=== PATIENT | male | born 1950 | race Two or more races ===

== ENCOUNTER 2018-12-20 11:53 | Inpatient (IN) | payer OTHER ==
--- NOTE | 2018-12-20 12:14 | PDOC ---
Rapid Medical Evaluation Chief Complaint: Shortness of Breath Time Seen by Provider: 12/20/18 12:10 Medical Evaluation: Allergies Allergy/AdvReac Type Severity Reaction Status Date / Time No Known Allergies Allergy Verified 12/20/18 12:07 Vital Signs Temp Pulse Resp BP Pulse Ox 98.8 F 107 H 26 H 146/57 L 90 L 12/20/18 12:03 12/20/18 12:03 12/20/18 12:03 12/20/18 12:03 12/20/18 12:03 12/20/18 12:12 CC: SOB PE: HR-107, RR-26, Spo2-90% Scattered I&E wheezing. Trace pedal edema. 4 word dyspnea. Orders: Cardiac w/u with duonebs Patient will proceed to ED for continued evaluation.
[2018-12-20] MEDS: ALBUTEROL SO4 2.5/IPRATROPIUM 0.5 INH SOL 3 ML VIAL.NEB. NEB SCH ×4 (12:16→13:00)
[2018-12-20] MEDS ORDERED: ALBUTEROL SO4 2.5/IPRATROPIUM 0.5 INH SOL 3 ML VIAL.NEB. NEB ONE ×2 (12:21→13:12)
[2018-12-20 12:36] LABS: BASO % 2.1 % (0-2.0); EOS % 8.1 % (0-4.5); HEMATOCRIT 46.6 % (35.4-49); LYMPH % 20.9 % (8-40); MCH 32.3 pg (25.7-33.7); MCHC 34.2 g/dl (32.0-35.9); MEAN CELL VOLUME 94.4 fl (80-96); MEAN PLT VOLUME 9.8 fl (7.5-11.1); MONO % 7.3 % (3.8-10.2); NEUT % 61.6 % (42.8-82.8); PLATELET COUNT 169 K/MM3 (134-434); RBC 4.94 M/mm3 (4.00-5.60); RDW 13.4 % (11.9-15.9); WHITE BLOOD COUNT 9.9 K/mm3 (4.0-10.0)
--- NOTE | 2018-12-20 12:36 | PDOC ---
History of Present Illness - General Chief Complaint: Shortness of Breath Stated Complaint: SOB Time Seen by Provider: 12/20/18 12:10 - History of Present Illness Initial Comments: 12/20/18 13:31 68 y/o M with a hx of Asthma, COPD, presents to the ED with 3 days of worsening shortness of breath and wheezing. He has had these symptoms for a month and a half and they have been managed by albuterol inhalers. Symptoms worsened when he ran out 3 days ago. SOB occurs both at rest and with exertion.He has had mid- sternal chest pain radiating to his right side with coughing, but no pleuritic chest pain. His symptoms have been accompanied by cough productive of clear phlegm. He endorses PND and wheezing. He denies any recent travel, hx of blood clots, hemoptysis, myocardial infarction, fevers, chills, nausea or vomiting. His PCP referred him to [place] for pulmonary function testing where he was found to have continued wheezing and difficulty breathing. He presented from the Respiratory department. PCP: Dr. Ariel Carroll. 12/20/18 13:40 12/20/18 15:42 Past History - Past Medical History Allergies/Adverse Reactions: Allergies Allergy/AdvReac Type Severity Reaction Status Date / Time No Known Allergies Allergy Verified 12/20/18 12:07 Home Medications: Ambulatory Orders Albuterol 2.5/Ipratropium 0.5 [Duoneb -] 1 amp NEB RQID #60 amp 12/26/18 Albuterol Sulfate Inhaler - [Ventolin Hfa Inhaler -] 1 - 2 inh PO Q4H PRN #1 inhaler 12/26/18 Arformoterol Tartrate [Brovana -] 1 amp NEB RBID #60 amp 12/26/18 Montelukast Na [Singulair -] 10 mg PO HS #30 tablet 12/26/18 Nebulizer Accessories [A.i.r.s. Nebulizer] 1 each ASDIR #1 kit 12/26/18 Nebulizer [Aeroeclipse II] 1 each ASDIR #1 each 12/26/18 Pantoprazole Sodium [Protonix -] 40 mg PO DAILY #14 tablet.ec 12/26/18 Prednisone 10 mg PO DAILY #28 tablet 12/26/18 COPD: No - Psycho Social/Smoking Cessation Hx Smoking History: Never smoked Have you smoked in the past 12 months: No Information on smoking cessation initiated: No Hx Alcohol Use: No Drug/Substance Use Hx: No Review of Systems - Review of Systems Constitutional: No: Chills, Fever HEENTM: No: Eye Pain, Blurred Vision Respiratory: Yes: Symptoms reported Cardiac (ROS): Yes: Symptoms Reported ABD/GI: No: Constipated, Diarrhea, Nausea, Vomiting : No: Burning, Dysuria Musculoskeletal: Yes: Back Pain Integumentary: No: Bruising, Change in Color Neurological: Yes: Headache Endocrine: No: Excessive Sweating *Physical Exam - Vital Signs Last Vital Signs Temp Pulse Resp BP Pulse Ox 98.8 F 107 H 26 H 146/57 L 90 L 12/20/18 12:03 12/20/18 12:03 12/20/18 12:03 12/20/18 12:03 12/20/18 12:03 - Physical Exam Comments: 12/20/18 13:42 PE: GENERAL: Awake, alert, and fully oriented, in no acute distress HEAD: No signs of trauma, normocephalic, atraumatic EYES: PERRLA, EOMI, sclera anicteric, conjunctiva clear ENT: Auricles normal inspection, hearing grossly normal, nares patent, oropharynx clear without exudates. Moist mucosa NECK: Normal ROM, supple, no lymphadenopathy, JVD, or masses LUNGS: Pt on duonebs tx at time of evaluation. Inspiratory wheezing and rhonchi. HEART: Tachycardic, normal S1 and S2, no murmurs, rubs or gallops, peripheral pulses normal and equal bilaterally. ABDOMEN: Soft, nontender, normoactive bowel sounds. No guarding, no rebound. No masses EXTREMITIES : Normal inspection, Normal range of motion, trace edema. No clubbing or cyanosis NEUROLOGICAL: Cranial nerves II through XII grossly intact. Normal speech, normal gait, no focal sensorimotor deficits SKIN: Warm, Dry, normal turgor, no rashes or lesions noted ED Treatment Course - LABORATORY CBC & Chemistry Diagram: 12/25/18 06:40 12/25/18 06:40 Medical Decision Making - Medical Decision Making 12/20/18 13:47 68 y/o M with a hx of Asthma, COPD, presents to the ED with 3 days of worsening shortness of breath and wheezing. ekg, cmp,cbc, cardiac monitoring, bnp, cardiac profile, cxr Meds: duonebs x 4 IV solumedrol 125mg 12/20/18 13:47 Pt reports pain and breathing improved with duonebs treatment. Discharge - Discharge Information Problems reviewed: Yes Clinical Impression/Diagnosis: COPD exacerbation Condition: Improved Disposition: HOME - Follow up/Referral - Patient Discharge Instructions - Post Discharge Activity
[2018-12-20 12:49] LABS: INR 1.06 (0.83-1.09); PROTHROMBIN TIME (PATIENT) 12.5 SEC (9.7-13.0)
[2018-12-20 13:08] LABS: BILIRUBIN,TOTAL 1.2 mg/dL (0.2-1); BLOOD UREA NITROGEN 27.4 mg/dL (7-18); CALCIUM 9.2 mg/dL (8.5-10.1); CREATININE 0.8 mg/dL (0.55-1.3); TOT PROT 7.5 g/dl (6.4-8.2)
[2018-12-20 13:12] LABS: MAGNESIUM 2.1 mg/dL (1.8-2.4); N-TERMINAL BNP 25.2 pg/ml (5-125)
[2018-12-20] MEDS ORDERED: SODIUM CHLORIDE 1,000 ML IV STA (13:22)
[2018-12-20] MEDS ORDERED: methylPREDNISolone NA SUCC 125 MG/2 ML VIAL IVPUSH ONE (13:29)
[2018-12-20] MEDS ORDERED: methylPREDNISolone NA SUCC 125 MG/2 ML VIAL ONE (13:48)
--- NOTE | 2018-12-20 15:13 | PDOC ---
Documentation entered by Dahlia Buenrostro SCRIBE, acting as scribe for Say Hester MD. Say Hester MD: This documentation has been prepared by the [employer] small Adrianna, SCRIBE, under my direction and personally reviewed by me in its entirety. I confirm that the documentation accurately reflects all work, treatment, procedures, and medical decision making performed by me. Attending Attestation - Resident Resident Name: Liborio Garcia - ED Attending Attestation I have performed the following: I have examined & evaluated the patient, The case was reviewed & discussed with the resident, I agree w/resident's findings & plan, Exceptions are as noted - HPI HPI: The patient is a 68 year old male, with a significant PMH of asthma and chronic obstructive pulmonary disease, who presents to the ED for evaluation of shortness of breath for 1.5 month, worse over the past 3 days. Patient has been short of breath with wheezing and productive cough (clear sputum), for which has been treating with albuterol inhalers. Patient ran out of the inhalers 3 days ago, which is when his symptoms were exacerbated. SOB is constant both at rest and upon exertion. Patient endorses associated mid-sternal chest pain that radiates to the right when he coughs. PCP advised him to come to the ER for further evaluation. Denies fever, chills, nausea, vomit, diarrhea. Allergies: NKA, NKDA Surgical History: None reported Social History: Former smoker (quit 10 years ago, smoked ppd). Denies EtOH or illicit drug use PCP: Dr. Ariel Carroll - Physicial Exam PE: Vitals: Triage Vital signs reviewed General Appearance: no acute distress, well nourished well developed, Cardiac: Regular rate and rhythm, no murmurs, no rubs, no gallops, Lungs: +Coarse breath sounds bilaterally, +end expiratory wheezing, Abdomen: Soft, nondistended, normal bowel sounds, nontender to palpation Extremities: Full range of motion to all extremities, no cyanosis, clubbing, or edema Skin: Warm and dry, no rashes or lesions, no petechiae Neuro: AOX3; Cranial Nerves 2-12 grossly c intact, Strength intact to all extremities, Sensation intact to all extremities, Psych: normal mood, normal affect - Medical Decision Making 68 year old male, with history of asthma and chronic obstructive pulmonary disease, presents with shortness of breath and chest pain. Plan: cmp, cbc, bmp, cardiac profile, cardiac monitoring, EKG, CXR. Administer duonebs, IV solumedrol. Reassess. 12/20/18 16:42 Patient treated with DuoNeb Solu-Medrol still remains hypoxic requiring supplemental oxygen and additional breathing treatments to maintain oxygenation given no improvement in symptomatology despite aggressive management will admit to hospital for further management of COPD exacerbation Heart Score/ECG Review - ECG Impressions Comment:: EKG performed at 11:47:41 demonstrates rate of 101bpm, sinus tachycardia, possible left atrial enlargement.
[2018-12-20] MEDS ORDERED: ALBUTEROL SO4 0.083% IH SOL 2.5 MG/3 ML VIAL.NEB. NEB PRN (18:40)
--- NOTE | 2018-12-20 18:47 | PN ---
Teaching Attending Note Name of Resident: Chris Pierson ATTENDING PHYSICIAN STATEMENT I saw and evaluated the patient. I reviewed the resident's note and discussed the case with the resident. I agree with the resident's findings and plan as documented. SUBJECTIVE: Complains of SOB/productive cough. No fevers/chills. No CP/ palpitations OBJECTIVE: Afebrile, Hemodynamically Stable. Last Vital Signs Temp Pulse Resp BP Pulse Ox 98.9 F 97 H 22 H 108/70 94 L 12/20/18 14:47 12/20/18 14:39 12/20/18 14:39 12/20/18 14:39 12/20/18 14:39 HEENT - Atramatic, Normocephalic. HEART - S1, S2, RRR LUNGS - bilateral wheeze. ABDOMEN - Soft, non-tender. Bowel Sounds normal. EXTREMITIES - no edema, no calf tenderness. Laboratory Results - last 24 hr 12/20/18 12/20/18 12/20/18 11:23 11:23 11:23 WBC 9.9 RBC 4.94 Hgb 16.0 Hct 46.6 MCV 94.4 MCH 32.3 MCHC 34.2 RDW 13.4 Plt Count 169 MPV 9.8 Absolute Neuts (auto) 6.1 Neutrophils % 61.6 Lymphocytes % 20.9 Monocytes % 7.3 Eosinophils % 8.1 H Basophils % 2.1 H Nucleated RBC % 0 PT with INR INR Sodium 141 Potassium 4.0 Chloride 109 H Carbon Dioxide 27 Anion Gap 4 L BUN 27.4 H Creatinine 0.8 Est GFR (CKD-EPI)AfAm 106.38 Est GFR (CKD-EPI)NonAf 91.79 Random Glucose 103 Lactic Acid Calcium 9.2 Magnesium 2.1 Total Bilirubin 1.2 H AST 22 ALT 32 Alkaline Phosphatase 89 Creatine Kinase 126 Troponin I < 0.02 B-Natriuretic Peptide 25.2 Total Protein 7.5 Albumin 4.0 12/20/18 12/20/18 11:23 14:56 WBC RBC Hgb Hct MCV MCH MCHC RDW Plt Count MPV Absolute Neuts (auto) Neutrophils % Lymphocytes % Monocytes % Eosinophils % Basophils % Nucleated RBC % PT with INR 12.50 INR 1.06 Sodium Potassium Chloride Carbon Dioxide Anion Gap BUN Creatinine Est GFR (CKD-EPI)AfAm Est GFR (CKD-EPI)NonAf Random Glucose Lactic Acid 1.2 Calcium Magnesium Total Bilirubin AST ALT Alkaline Phosphatase Creatine Kinase Troponin I B-Natriuretic Peptide Total Protein Albumin Current Medications Generic Name Dose Route Start Last Admin Trade Name Freq PRN Reason Stop Dose Admin Albuterol Sulfate amp 12/20/18 18:40 Ventolin 0.083% Nebulizer Soln - NEB Q4H PRN SHORT OF BREATH/WHEEZING Enoxaparin Sodium 40 mg 12/21/18 10:00 Lovenox - SQ DAILY [facility] Home Medications Medication Instructions Recorded Albuterol 2.5/Ipratropium 0.5 1 amp NEB QID PRN #1 amp 12/20/18 [Duoneb -] Prednisone [Deltasone] 40 mg PO DAILY 3 Days #6 tablet 12/20/18 MDD 2 tab ASSESSMENT AND PLAN: 68 year old male ex-smoker with history of COPD sent to ED from [facility] for poor results and symptoms of SOB, chest tightness, cough w/ clear-white sputum, found to be hypoxic and was admitted for COPD exacerbation. 1. Acute Hypoxic Respiratory failure secondary to COPD Exacerbation Bronchodilator nebs, IV Solumedrol, Abx, supplemental O2. Monitor Respiratory status. DVT Px - Lovenox SQ
[2018-12-20] MEDS ORDERED: ALBUTEROL SO4 2.5/IPRATROPIUM 0.5 INH SOL 3 ML VIAL.NEB. NEB PRN (19:09)
--- NOTE | 2018-12-20 19:39 | HP ---
CHIEF COMPLAINT: SOB w/a chest tightness PCP: HISTORY OF PRESENT ILLNESS: 68M w/ pmh of asthma, COPD sent in from [facility] for "bad" PFT results. Has had chronic SOB for 6ys since he was diagnosed with asthma, COPD. Symptoms of SOB, cough w/ clear-white sputum, chest tightness worse at night, usually requiring asthma inhaler. No known specific asthma triggers. No sick contacts. Used up his inhaler 3d prior. Has been to [place] [id number] in the last year for asthma/COPD exacerbations. Had pneumonia last year that resulted in a 1mo admission. Never been intubated. Denies being prescribed steroids. Has dust allergy. Works small odd-jobs helping clean, move items. [facility] #[id number] ER course was notable for: (1) EKbpm, QTc 438 (2) duoneb x4 q15min (3) solumedrol 125mg IVP (4) NS 1L (5) O2 desat to high 80s on RA (6) 4L NC Recent Travel: PAST MEDICAL HISTORY: asthma, COPD PAST SURGICAL HISTORY: Right foot bunion surgery Social History: Smoking: stopped smoking 10ys prior, smoked 1 pack per 3d Alcohol: occasional Drugs: denies Allergies No Known Allergies Allergy (Verified 12/20/18 12:07) HOME MEDICATIONS: Home Medications Medication Instructions Recorded Albuterol 2.5/Ipratropium 0.5 1 amp NEB QID PRN #1 amp 12/20/18 [Duoneb -] Prednisone [Deltasone] 40 mg PO DAILY 3 Days #6 tablet 12/20/18 MDD 2 tab REVIEW OF SYSTEMS CONSTITUTIONAL: Absent: fever, chills, diaphoresis, generalized weakness HEENT: Absent: rhinorrhea, nasal congestion, throat pain, throat swelling, difficulty swallowing CARDIOVASCULAR: Absent: chest pain, palpitations, irregular heart rate, lightheadedness, peripheral edema RESPIRATORY: cough w/ clear-white sputum, shortness of breath, wheezing Absent: dyspnea with exertion, orthopnea, stridor, hemoptysis GASTROINTESTINAL: Absent: abdominal pain, abdominal distension, nausea, vomiting, diarrhea, constipation, melena, hematochezia GENITOURINARY: Absent: dysuria, frequency, urgency, hematuria, MUSCULOSKELETAL: Absent: myalgia, arthralgia, joint swelling, back pain, neck pain SKIN: Absent: rash, itching, pallor NEUROLOGIC: Absent: headache, focal weakness or paresthesias, dizziness, unsteady gait, seizure, PHYSICAL EXAMINATION Vital Signs - 24 hr 12/20/18 12/20/18 12/20/18 12:03 13:40 14:00 Temperature 98.8 F Pulse Rate 107 H Pulse Rate [ 102 H Apical] Respiratory 26 H 22 H Rate Blood Pressure 146/57 L Blood Pressure [Left Arm] O2 Sat by Pulse 90 L 92 L 93 L Oximetry (%) 12/20/18 12/20/18 12/20/18 14:35 14:39 14:47 Temperature 98.9 F Pulse Rate Pulse Rate [ 97 H Apical] Respiratory 22 H Rate Blood Pressure Blood Pressure 108/70 [Left Arm] O2 Sat by Pulse 94 L 94 L Oximetry (%) GENERAL: Awake, alert, and fully oriented, in no acute distress. HEAD: NC/AT EYES: sclera anicteric, conjunctiva clear. EARS, NOSE, THROAT: Ears normal, nares patent, oropharynx w/o erythema. Moist mucous membranes. NECK: Normal range of motion, supple without lymphadenopathy. LUNGS: diffuse expiratory wheezes throughout b/l lungs, no crackles. No accessory muscle use. Breathing 4L NC. Speaking full sentences HEART: tachy, reg rhythm, normal S1 and S2 without murmur, rub or gallop. ABDOMEN: Soft, nontender, not distended, no guarding, no rebound, no masses. MUSCULOSKELETAL: Normal range of motion at all joints. No bony deformities or tenderness. UPPER EXTREMITIES: 2+ pulses, warm, well-perfused. No cyanosis. No clubbing. No peripheral edema. LOWER EXTREMITIES: warm, well-perfused. No calf tenderness. No peripheral edema. NEUROLOGICAL: Normal speech. PSYCHIATRIC: Cooperative. Good eye contact. Appropriate mood and affect. SKIN: Warm, dry, normal turgor, no rashes or lesions noted, normal capillary refill. Laboratory Results - last 24 hr 12/20/18 12/20/18 12/20/18 11:23 11:23 11:23 WBC 9.9 RBC 4.94 Hgb 16.0 Hct 46.6 MCV 94.4 MCH 32.3 MCHC 34.2 RDW 13.4 Plt Count 169 MPV 9.8 Absolute Neuts (auto) 6.1 Neutrophils % 61.6 Lymphocytes % 20.9 Monocytes % 7.3 Eosinophils % 8.1 H Basophils % 2.1 H Nucleated RBC % 0 PT with INR INR Sodium 141 Potassium 4.0 Chloride 109 H Carbon Dioxide 27 Anion Gap 4 L BUN 27.4 H Creatinine 0.8 Est GFR (CKD-EPI)AfAm 106.38 Est GFR (CKD-EPI)NonAf 91.79 Random Glucose 103 Lactic Acid Calcium 9.2 Magnesium 2.1 Total Bilirubin 1.2 H AST 22 ALT 32 Alkaline Phosphatase 89 Creatine Kinase 126 Troponin I < 0.02 B-Natriuretic Peptide 25.2 Total Protein 7.5 Albumin 4.0 12/20/18 12/20/18 11:23 14:56 WBC RBC Hgb Hct MCV MCH MCHC RDW Plt Count MPV Absolute Neuts (auto) Neutrophils % Lymphocytes % Monocytes % Eosinophils % Basophils % Nucleated RBC % PT with INR 12.50 INR 1.06 Sodium Potassium Chloride Carbon Dioxide Anion Gap BUN Creatinine Est GFR (CKD-EPI)AfAm Est GFR (CKD-EPI)NonAf Random Glucose Lactic Acid 1.2 Calcium Magnesium Total Bilirubin AST ALT Alkaline Phosphatase Creatine Kinase Troponin I B-Natriuretic Peptide Total Protein Albumin ASSESSMENT/PLAN: 68M w/ pmh of asthma, COPD sent to ED from [facility] for poor results and symptoms of SOB, chest tightness, cough w/ clear-white sputum. Admitted for asthma exacerbation after the patient demonstrated O2 requirement, desaturating to mid-high 80s on RA #asthma excerbation --symptomatically improved > EKG(12/20/18): 101 bpm, QTc 438 > CXR(12/20/18): no major abn, pending read - ED: s/p duonebx x4, solumedrol 124mg IVP - duonebs q6h, scheduled - duonebs q4h, PRN - solumedrol 40mg IVP, q4h - levofloxacin 750mg daily - supplemental O2, titrate >92% #bilirubinemia --asymptomatic > Tbil 1.2 - trend FEN - NS @100ml/h - reg diet DVT - lovenox Family Medical History Family History: Denies Visit type - Emergency Visit Emergency Visit: Yes ED Registration Date: 12/20/18 Care time: The patient presented to the Emergency Department on the above date and was hospitalized for further evaluation of their emergent condition. - New Patient This patient is new to me today: Yes Date on this admission: 12/20/18 - Critical Care Critical Care patient: No ATTENDING PHYSICIAN STATEMENT I saw and evaluated the patient. I reviewed the resident's note and discussed the case with the resident. I agree with the resident's findings and plan as documented. SUBJECTIVE: OBJECTIVE: ASSESSMENT AND PLAN:
[2018-12-20] MEDS ORDERED: SODIUM CHLORIDE 1,000 ML IV SCH (19:45)
[2018-12-20] MEDS: methylPREDNISolone NA SUCC 40 MG/1 ML VIAL IVPUSH SCH (22:24)
[2018-12-21 01:10] VITALS: BMI 27.6
[2018-12-21] MEDS: methylPREDNISolone NA SUCC 40 MG/1 ML VIAL IVPUSH SCH ×4 (02:36→23:21)
[2018-12-21 05:55] LABS: PH,URINE 5.5 (5.0-8.0); URINE APPEARANCE CLEAR; URINE BILIRUBIN NEGATIVE (NEGATIVE); URINE COLOR YELLOW; URINE GLUCOSE (UA) TRACE (NEGATIVE); URINE KETONE NEGATIVE (NEGATIVE); URINE LEUK ESTERASE NEGATIVE (NEGATIVE); URINE NITRITE NEGATIVE (NEGATIVE); URINE PROTEIN NEGATIVE (NEGATIVE); URINE UROBILINOGEN 0.2 mg/dL (0.2-1.0)
[2018-12-21 08:02] LABS: HEMATOCRIT 43.4 % (35.4-49); MCH 32.3 pg (25.7-33.7); MCHC 34.7 g/dl (32.0-35.9); MEAN CELL VOLUME 93.2 fl (80-96); MEAN PLT VOLUME 10.5 fl (7.5-11.1); PLATELET COUNT 146 K/MM3 (134-434); RBC 4.65 M/mm3 (4.00-5.60); RDW 13.2 % (11.9-15.9); WHITE BLOOD COUNT 9.6 K/mm3 (4.0-10.0)
[2018-12-21 08:27] LABS: ALBUMIN 3.5 g/dl (3.4-5.0); BILIRUBIN,TOTAL 0.7 mg/dL (0.2-1); BLOOD UREA NITROGEN 19.7 mg/dL (7-18); CALCIUM 8.9 mg/dL (8.5-10.1); CREATININE 0.6 mg/dL (0.55-1.3); MAGNESIUM 2.1 mg/dL (1.8-2.4); PHOSPHOROUS 3.2 mg/dL (2.5-4.9); TOT PROT 6.7 g/dl (6.4-8.2)
[2018-12-21] MEDS: ALBUTEROL SO4 2.5/IPRATROPIUM 0.5 INH SOL 3 ML VIAL.NEB. NEB SCH ×4 (08:33→20:44)
--- NOTE | 2018-12-21 09:54 | EKG ---
Test Reason : Blood Pressure : / mmHG Vent. Rate : 101 BPM Atrial Rate : 101 BPM P-R Int : 142 ms QRS Dur : 092 ms QT Int : 338 ms P-R-T Axes : 072 025 061 degrees QTc Int : 438 ms POOR DATA QUALITY, INTERPRETATION MAY BE ADVERSELY AFFECTED SINUS TACHYCARDIA POSSIBLE LEFT ATRIAL ENLARGEMENT BORDERLINE ECG NO PREVIOUS ECGS AVAILABLE Confirmed by BHUPINDER MOSQUEDA, NICHELLE ([id number]) on 12/21/2018 9:54:12 AM Referred By: Confirmed By:NICHELLE ROE MD
[2018-12-21] MEDS: ENOXAPARIN NA (PORCINE) 40 MG/0.4 ML DISP.SYRIN SQ SCH (09:55)
[2018-12-21] MEDS ORDERED: IBUPROFEN 600 MG TABLET (FP) PO PRN (13:00)
[2018-12-21] MEDS ORDERED: AZITHROMYCIN IVPB 500 MG/250 ML BAG IVPB SCH (13:15)
--- NOTE | 2018-12-21 16:20 | PN ---
Teaching Attending Note Name of Resident: Chris Pierson ATTENDING PHYSICIAN STATEMENT I saw and evaluated the patient. I reviewed the resident's note and discussed the case with the resident. I agree with the resident's findings and plan as documented. SUBJECTIVE: Complains of ongoing SOB/productive cough. Developed myalgia overnight. No fevers/chills. No CP/palpitations OBJECTIVE: Afebrile, Hemodynamically Stable. SpO2 94% on 2L via NC Last Vital Signs Temp Pulse Resp BP Pulse Ox 98.5 F 109 H 18 130/60 94 L 12/21/18 15:24 12/21/18 15:24 12/21/18 15:24 12/21/18 15:24 12/21/18 08:45 HEENT - Atraumatic, Normocephalic. HEART - S1, S2, RRR LUNGS - bilateral polyphonic wheeze. ABDOMEN - Soft, non-tender. Bowel Sounds normal. EXTREMITIES - no edema, no calf tenderness. Laboratory Results - last 24 hr 12/21/18 12/21/18 12/21/18 04:15 07:15 07:15 WBC 9.6 RBC 4.65 Hgb 15.0 Hct 43.4 MCV 93.2 MCH 32.3 MCHC 34.7 RDW 13.2 Plt Count 146 MPV 10.5 Sodium 143 Potassium 4.0 Chloride 111 H Carbon Dioxide 23 Anion Gap 8 BUN 19.7 H Creatinine 0.6 Est GFR (CKD-EPI)AfAm 119.74 Est GFR (CKD-EPI)NonAf 103.31 Random Glucose 137 H Calcium 8.9 Phosphorus 3.2 Magnesium 2.1 Total Bilirubin 0.7 AST 13 L ALT 26 Alkaline Phosphatase 72 Total Protein 6.7 Albumin 3.5 Urine Color Yellow Urine Appearance Clear Urine pH 5.5 Ur Specific [place] 1.023 Urine Protein Negative Urine Glucose (UA) Trace Urine Ketones Negative Urine Blood Negative Urine Nitrite Negative Urine Bilirubin Negative Urine Urobilinogen 0.2 Ur Leukocyte Esterase Negative Current Medications Generic Name Dose Route Start Last Admin Trade Name Freq PRN Reason Stop Dose Admin Albuterol Sulfate 1 amp 12/20/18 18:40 Ventolin 0.083% Nebulizer Soln - NEB Q4H PRN SHORT OF BREATH/WHEEZING Albuterol/Ipratropium 1 amp 12/21/18 08:00 12/21/18 14:46 Duoneb - NEB 1 amp RQID BJORN Administration Enoxaparin Sodium 40 mg 12/21/18 10:00 12/21/18 09:55 Lovenox - SQ 40 mg DAILY BJORN Administration Sodium Chloride 1,000 mls @ 100 mls/hr 12/20/18 19:45 12/20/18 19:55 Normal Saline - IV 100 mls/hr ASDIR BJORN Administration Azithromycin 500 mg in 250 mls @ 250 mls/hr 12/21/18 15:15 Zithromax 500mg Ivpb (Pre-Docked) IVPB 12/26/18 09:59 DAILY BJORN Ibuprofen 600 mg 12/21/18 13:00 Motrin - PO Q6H PRN PAIN LEVEL 6-10 Methylprednisolone Sodium Succinate 40 mg 12/20/18 21:00 12/21/18 09:55 Solu-Medrol - IVPUSH 40 mg Q6H-IV BJORN Administration Home Medications Medication Instructions Recorded Albuterol 2.5/Ipratropium 0.5 1 amp NEB QID PRN #1 amp 12/20/18 [Duoneb -] predniSONE [Deltasone -] 40 mg PO BID 12/21/18 ASSESSMENT AND PLAN: 68 year old male ex-smoker with history of COPD sent to ED from [facility] for poor results and symptoms of SOB, chest tightness, cough w/ clear-white sputum, found to be hypoxic and was admitted for COPD exacerbation. 1. Acute Hypoxic Respiratory failure secondary to COPD Exacerbation, improving Continue Bronchodilator Nebs, IV Solumedrol, Azithromycin, Supplemental O2. CXR - Evidence of hyperinflation, no acute cardiopulmonary disease Monitor Respiratory status. DVT Px - Lovenox SQ
[2018-12-21] MEDS ORDERED: PT OWN MED DRAWER 7, Y5N ONE (16:25)
[2018-12-21] MEDS: AZITHROMYCIN IVPB 500 MG/250 ML BAG IVPB SCH (17:04)
--- NOTE | 2018-12-21 17:11 | PN ---
Physical Exam: SUBJECTIVE: Patient seen and examined THEO Endorses SOB w/ chest tightness OBJECTIVE: Vital Signs Period Temp Pulse Resp BP Sys/Ochoa Pulse Ox Last 24 Hr 97.5 F-99.7 F 67-109 18-20 113-149/60-81 94-96 GENERAL: Awake, alert, and fully oriented, in no acute distress. HEAD: NC/AT EYES: sclera anicteric, conjunctiva clear. EARS, NOSE, THROAT: Ears normal, nares patent, oropharynx w/o erythema. Moist mucous membranes. NECK: Normal range of motion, supple without lymphadenopathy. LUNGS: some expiratory wheezes throughout b/l lungs, no crackles. No accessory muscle use. Receiving breathing tx. Speaking full sentences HEART: tachy, reg rhythm, normal S1 and S2 without murmur, rub or gallop. ABDOMEN: Soft, nontender, not distended, no guarding, no rebound, no masses. MUSCULOSKELETAL: Normal range of motion at all joints. No bony deformities or tenderness. UPPER EXTREMITIES: 2+ pulses, warm, well-perfused. No cyanosis. No clubbing. No peripheral edema. LOWER EXTREMITIES: warm, well-perfused. No calf tenderness. No peripheral edema. NEUROLOGICAL: Normal speech. PSYCHIATRIC: Cooperative. Good eye contact. Appropriate mood and affect. SKIN: Warm, dry, normal turgor, no rashes or lesions noted, normal capillary refill. Laboratory Results - last 24 hr 12/21/18 12/21/18 12/21/18 04:15 07:15 07:15 WBC 9.6 RBC 4.65 Hgb 15.0 Hct 43.4 MCV 93.2 MCH 32.3 MCHC 34.7 RDW 13.2 Plt Count 146 MPV 10.5 Sodium 143 Potassium 4.0 Chloride 111 H Carbon Dioxide 23 Anion Gap 8 BUN 19.7 H Creatinine 0.6 Est GFR (CKD-EPI)AfAm 119.74 Est GFR (CKD-EPI)NonAf 103.31 Random Glucose 137 H Calcium 8.9 Phosphorus 3.2 Magnesium 2.1 Total Bilirubin 0.7 AST 13 L ALT 26 Alkaline Phosphatase 72 Total Protein 6.7 Albumin 3.5 Urine Color Yellow Urine Appearance Clear Urine pH 5.5 Ur Specific [place] 1.023 Urine Protein Negative Urine Glucose (UA) Trace Urine Ketones Negative Urine Blood Negative Urine Nitrite Negative Urine Bilirubin Negative Urine Urobilinogen 0.2 Ur Leukocyte Esterase Negative Active Medications Generic Name Dose Route Start Last Admin Trade Name Freq PRN Reason Stop Dose Admin Albuterol Sulfate 1 amp 12/20/18 18:40 Ventolin 0.083% Nebulizer Soln - NEB Q4H PRN SHORT OF BREATH/WHEEZING Albuterol/Ipratropium 1 amp 12/21/18 08:00 12/21/18 16:27 Duoneb - NEB 1 amp RQID BJORN Administration Enoxaparin Sodium 40 mg 12/21/18 10:00 12/21/18 09:55 Lovenox - SQ 40 mg DAILY BJORN Administration Azithromycin 500 mg in 250 mls @ 250 mls/hr 12/21/18 15:15 Zithromax 500mg Ivpb (Pre-Docked) IVPB 12/26/18 09:59 DAILY BJORN Ibuprofen 600 mg 12/21/18 13:00 Motrin - PO Q6H PRN PAIN LEVEL 6-10 Methylprednisolone Sodium Succinate 40 mg 12/20/18 21:00 12/21/18 15:31 Solu-Medrol - IVPUSH 40 mg Q6H-IV BJORN Administration ASSESSMENT/PLAN: 68M w/ pmh of asthma, COPD sent to ED from [facility] for poor results and symptoms of SOB, chest tightness, cough w/ clear-white sputum. Admitted for asthma exacerbation after the patient demonstrated O2 requirement, desaturating to mid-high 80s on RA #asthma excerbation --symptomatically improved > EKG(12/20/18): 101 bpm, QTc 438 > CXR(12/20/18): no major abn, pending read - ED: s/p duonebx x4, solumedrol 124mg IVP - duonebs q6h, scheduled - duonebs q4h, PRN - solumedrol 40mg IVP, q4h - levofloxacin 750mg daily -- dc'd - azithromycin -- day 2, continue for 5d abx - supplemental O2, titrate >92% #bilirubinemia --resolved > Tbil 1.2 -> 0.7 FEN - NS @100ml/h - reg diet DVT - lovenox Visit type - Emergency Visit Emergency Visit: No - New Patient This patient is new to me today: No - Critical Care Critical Care patient: No ATTENDING PHYSICIAN STATEMENT I saw and evaluated the patient. I reviewed the resident's note and discussed the case with the resident. I agree with the resident's findings and plan as documented. SUBJECTIVE: OBJECTIVE: ASSESSMENT AND PLAN:
[2018-12-22] MEDS: methylPREDNISolone NA SUCC 40 MG/1 ML VIAL IVPUSH SCH ×4 (04:00→22:03)
[2018-12-22] MEDS: ALBUTEROL SO4 2.5/IPRATROPIUM 0.5 INH SOL 3 ML VIAL.NEB. NEB SCH ×4 (08:00→20:41)
[2018-12-22] MEDS ORDERED: AZITHROMYCIN IVPB 500 MG/250 ML BAG IVPB SCH (10:00)
[2018-12-22] MEDS ORDERED: PT OWN MED DRAWER 7, Y5N ONE (10:33)
[2018-12-22] MEDS: ENOXAPARIN NA (PORCINE) 40 MG/0.4 ML DISP.SYRIN SQ SCH (10:35)
[2018-12-22] MEDS: AZITHROMYCIN IVPB 500 MG/250 ML BAG IVPB SCH (10:35)
--- NOTE | 2018-12-22 11:16 | CON.PULM ---
Consult Consult Specialty:: PULMONARY Referred by:: Dr Neri Reason for Consultation:: shortness of breath - History of Present Illness Chief Complaint: shortness of breath History of Present Illness: 68yo male with h/o COPD/asthma who was admitted with worsening shortness of breath. Was noted to be hypoxic and spirometry was performed showing severely reduced FEV1. Started on IV medrol and inhaled bronchodilators without significant improvement. States he still feels chest tightness with a cough productive of white sputum and wheezing. Reports chest discomfort especially with coughing. No fevers, chills or sweats. He is a former smoker, smoked about 1 PPD x 20 years. - History Source History Provided By: Patient, Medical Record Limitations to Obtaining History: Language Barrier - Past Medical History Pulmonary: Yes: COPD - Alcohol/Substance Use Hx Alcohol Use: No - Smoking History Smoking history: Never smoked Have you smoked in the past 12 months: No Home Medications - Allergies Allergies/Adverse Reactions: Allergies Allergy/AdvReac Type Severity Reaction Status Date / Time No Known Allergies Allergy Verified 12/20/18 12:07 - Home Medications Home Medications: Ambulatory Orders Albuterol 2.5/Ipratropium 0.5 [Duoneb -] 1 amp NEB QID PRN #1 amp 12/20/18 predniSONE [Deltasone -] 40 mg PO BID 12/21/18 Review of Systems - Review of Systems Constitutional: reports: Weakness. denies: Chills, Fever Eyes: denies: Recent Change in Vision HENT: denies: Nasal Congestion, Throat Pain Neck: denies: Decreased ROM, Stiffness Cardiovascular: reports: Chest Pain, Shortness of Breath. denies: Edema, Palpitations Respiratory: reports: Cough, Exercise Intolerance, SOB, SOB on Exertion, Wheezing. denies: Hemoptysis Gastrointestinal: denies: Abdominal Pain, Nausea, Vomiting Genitourinary: denies: Dysuria, Hematuria Neurological: denies: Dizziness, Headache Endocrine: denies: Unexplained Weight Loss Physical Exam Vital Sings: Vital Signs Temperature 98.6 F 12/22/18 09:00 Pulse Rate 108 H 12/22/18 09:00 Respiratory Rate 18 12/22/18 09:00 Blood Pressure 126/67 12/22/18 09:00 O2 Sat by Pulse Oximetry (%) 94 L 12/22/18 08:56 Constitutional: Yes: Calm Eyes: Yes: Conjunctiva Clear, EOM Intact HENT: Yes: Atraumatic, Normocephalic Neck: Yes: Supple, Trachea Midline Cardiovascular: Yes: Regular Rate and Rhythm Respiratory: Yes: Rhonchi, Wheezes ...Clubbing: No Gastrointestinal: Yes: Normal Bowel Sounds, Soft. No: Tenderness Edema: No Neurological: Yes: Alert, Oriented Labs: CBC, BMP 12/21/18 07:15 12/21/18 07:15 Imaging - Results Chest X-ray: Report Reviewed, Image Reviewed (no infiltrates) Problem List - Problems (1) COPD with acute exacerbation Code(s): J44.1 - CHRONIC OBSTRUCTIVE PULMONARY DISEASE W (ACUTE) EXACERBATION Assessment/Plan Acute COPD Exacerbation Hypoxia from above - will increase medrol to 60mg q6h - start LABA i.e. Brovana - inhaled bronchodilators standing and PRN - singulair - agree with azithromycin - O2 to keep SpO2 >90% - given severe reduction in FEV1, pt may be slow to improve - DVT prophylaxis Thank you for this consult Jae Ramirez MD
[2018-12-22] MEDS: ARFORMOTEROL TARTRATE 15 MCG/2 ML VIAL NEB SCH ×2 (12:00→20:42)
--- NOTE | 2018-12-22 13:43 | PN ---
Physical Exam: SUBJECTIVE: Patient seen and examined TANKEON. Endorses persistent shortness of breath, with chest tightness. NC 3L OBJECTIVE: Vital Signs Period Temp Pulse Resp BP Sys/Ochoa Pulse Ox Last 24 Hr 98.0 F-98.6 F 83-111 18-22 105-130/57-73 94-95 GENERAL: Awake, alert, and fully oriented, in no acute distress. HEAD: NC/AT EYES: sclera anicteric, conjunctiva clear. EARS, NOSE, THROAT: Ears normal, nares patent, oropharynx w/o erythema. Moist mucous membranes. NECK: Normal range of motion, supple without lymphadenopathy. LUNGS: diffuse expiratory wheezes throughout b/l lungs, no crackles. No accessory muscle use. Speaking short sentences. NC 3L O2, pulse ox 90% HEART: tachy, reg rhythm, normal S1 and S2 without murmur, rub or gallop. ABDOMEN: Soft, nontender, not distended, no guarding, no rebound, no masses. MUSCULOSKELETAL: Normal range of motion at all joints. No bony deformities or tenderness. UPPER EXTREMITIES: 2+ pulses, warm, well-perfused. No cyanosis. No clubbing. No peripheral edema. LOWER EXTREMITIES: warm, well-perfused. No calf tenderness. No peripheral edema. NEUROLOGICAL: Normal speech. PSYCHIATRIC: Cooperative. Good eye contact. Appropriate mood and affect. SKIN: Warm, dry, normal turgor, no rashes or lesions noted, normal capillary refill. Laboratory Results - last 24 hr 12/21/18 12/21/18 07:15 23:13 Sodium 143 Potassium 4.0 Chloride 111 H Carbon Dioxide 23 Anion Gap 8 BUN 19.7 H Creatinine 0.6 Est GFR (CKD-EPI)AfAm 119.74 Est GFR (CKD-EPI)NonAf 103.31 POC Glucometer 130 Random Glucose 137 H Calcium 8.9 Phosphorus 3.2 Magnesium 2.1 Total Bilirubin 0.7 AST 13 L ALT 26 Alkaline Phosphatase 72 Creatine Kinase 91 Total Protein 6.7 Albumin 3.5 Active Medications Generic Name Dose Route Start Last Admin Trade Name Freq PRN Reason Stop Dose Admin Albuterol Sulfate 1 amp 12/20/18 18:40 Ventolin 0.083% Nebulizer Soln - NEB Q4H PRN SHORT OF BREATH/WHEEZING Albuterol/Ipratropium 1 amp 12/21/18 08:00 12/22/18 12:00 Duoneb - NEB 1 amp RQID BJORN Administration Arformoterol Tartrate 1 amp 12/22/18 11:19 12/22/18 12:00 Brovana (Restricted To Pulmonology/Resp) - NEB 1 amp RBID BJORN Administration Enoxaparin Sodium 40 mg 12/21/18 10:00 12/22/18 10:35 Lovenox - SQ 40 mg DAILY BJORN Administration Azithromycin 500 mg in 250 mls @ 250 mls/hr 12/21/18 15:15 12/22/18 10:35 Zithromax 500mg Ivpb (Pre-Docked) IVPB 12/26/18 09:59 250 mls/hr DAILY BJORN Administration Ibuprofen 600 mg 12/21/18 13:00 Motrin - PO Q6H PRN PAIN LEVEL 6-10 Methylprednisolone Sodium Succinate 60 mg 12/22/18 11:20 Solu-Medrol - IVPUSH Q6H-IV BJORN Montelukast Sodium 10 mg 12/22/18 22:00 Singulair - PO HS BJORN Vital Signs Temp 98.6 F 12/22/18 09:00 Pulse 108 H 12/22/18 09:00 Resp 18 12/22/18 09:00 BP 126/67 12/22/18 09:00 Pulse Ox 94 L 12/22/18 08:56 Intake & Output 12/21/18 12/22/18 12/22/18 23:59 11:59 23:59 Intake Total 1100 Balance 1100 Intake: Oral 1100 Other: Voiding Method Toilet Toilet Bowel Movement No No ASSESSMENT/PLAN: 68M w/ pmh of asthma, COPD sent to ED from [facility] for poor results and symptoms of SOB, chest tightness, cough w/ clear-white sputum. Admitted for asthma exacerbation after the patient demonstrated O2 requirement, desaturating to mid-high 80s on RA #asthma excerbation --symptomatically improved > EKG(12/20/18): 101 bpm, QTc 438 > CXR(12/20/18): no major abn, pending read > BCX, UCX(12/20/18): NGTD - ED: s/p duonebx x4, solumedrol 124mg IVP - duonebs q6h, scheduled - duonebs q4h, PRN - solumedrol 40mg IVP, q4h - levofloxacin 750mg daily -- dc'd - azithromycin -- day 3, continue for 5d abx - supplemental O2, titrate >92% - Pulm Consulted: -- increased solumedrol 60mg q6h -- started LABA(Brovana) -- started singulair -- pt likely slow to improve #bilirubinemia --resolved > Tbil 1.2 -> 0.7 FEN - reg diet DVT - lovenox Visit type - Emergency Visit Emergency Visit: No - New Patient This patient is new to me today: No - Critical Care Critical Care patient: No ATTENDING PHYSICIAN STATEMENT I saw and evaluated the patient. I reviewed the resident's note and discussed the case with the resident. I agree with the resident's findings and plan as documented. SUBJECTIVE: OBJECTIVE: ASSESSMENT AND PLAN:
--- NOTE | 2018-12-22 15:14 | PN ---
Teaching Attending Note Name of Resident: Chris Pierson ATTENDING PHYSICIAN STATEMENT I saw and evaluated the patient. I reviewed the resident's note and discussed the case with the resident. I agree with the resident's findings and plan as documented. SUBJECTIVE: Complains of ongoing SOB/productive cough. Myalgia resolved. No fevers/chills. No CP/palpitations OBJECTIVE: Afebrile, Hemodynamically Stable. SpO2 94% on 2L via NC Last Vital Signs Temp Pulse Resp BP Pulse Ox 98.6 F 108 H 18 126/67 94 L 12/22/18 09:00 12/22/18 09:00 12/22/18 09:00 12/22/18 09:00 12/22/18 08:56 HEART - S1, S2, RRR LUNGS - bilateral polyphonic wheeze. ABDOMEN - Soft, non-tender. Bowel Sounds normal. EXTREMITIES - no edema, no calf tenderness. Laboratory Results - last 24 hr 12/21/18 12/21/18 07:15 23:13 Sodium 143 Potassium 4.0 Chloride 111 H Carbon Dioxide 23 Anion Gap 8 BUN 19.7 H Creatinine 0.6 Est GFR (CKD-EPI)AfAm 119.74 Est GFR (CKD-EPI)NonAf 103.31 POC Glucometer 130 Random Glucose 137 H Calcium 8.9 Phosphorus 3.2 Magnesium 2.1 Total Bilirubin 0.7 AST 13 L ALT 26 Alkaline Phosphatase 72 Creatine Kinase 91 Total Protein 6.7 Albumin 3.5 Current Medications Generic Name Dose Route Start Last Admin Trade Name Freq PRN Reason Stop Dose Admin Albuterol Sulfate 1 amp 12/20/18 18:40 Ventolin 0.083% Nebulizer Soln - NEB Q4H PRN SHORT OF BREATH/WHEEZING Albuterol/Ipratropium 1 amp 12/21/18 08:00 12/22/18 12:00 Duoneb - NEB 1 amp RQID BJORN Administration Arformoterol Tartrate 1 amp 12/22/18 11:19 12/22/18 12:00 Brovana (Restricted To Pulmonology/Resp) - NEB 1 amp RBID BJORN Administration Enoxaparin Sodium 40 mg 12/21/18 10:00 12/22/18 10:35 Lovenox - SQ 40 mg DAILY BJORN Administration Azithromycin 500 mg in 250 mls @ 250 mls/hr 12/21/18 15:15 12/22/18 10:35 Zithromax 500mg Ivpb (Pre-Docked) IVPB 12/26/18 09:59 250 mls/hr DAILY BJORN Administration Ibuprofen 600 mg 12/21/18 13:00 Motrin - PO Q6H PRN PAIN LEVEL 6-10 Methylprednisolone Sodium Succinate 60 mg 12/22/18 11:20 Solu-Medrol - IVPUSH Q6H-IV BJORN Montelukast Sodium 10 mg 12/22/18 22:00 Singulair - PO HS BJORN Home Medications Medication Instructions Recorded Albuterol 2.5/Ipratropium 0.5 1 amp NEB QID PRN #1 amp 12/20/18 [Duoneb -] predniSONE [Deltasone -] 40 mg PO BID 12/21/18 ASSESSMENT AND PLAN: 68 year old male ex-smoker with history of COPD sent to ED from [facility] for poor results and symptoms of SOB, chest tightness, cough w/ clear-white sputum, found to be hypoxic and was admitted for COPD exacerbation. Acute Hypoxic Respiratory failure secondary to COPD Exacerbation, slow to improve CXR - evidence of hyperinflation, no acute cardiopulmonary disease Pulmonary consulted - Solumedrol increased to 60mg q6hr. Continue Azithromycin, Bronchodilator Nebs, Supplemental O2. LABA and Singular added by Pulmonary. Repeat CXR requested. Monitor Respiratory status. DVT Px - Lovenox SQ
[2018-12-22] MEDS: MONTELUKAST NA 10 MG TABLET PO SCH (22:08)
[2018-12-23] MEDS: methylPREDNISolone NA SUCC 40 MG/1 ML VIAL IVPUSH SCH ×3 (03:29→15:43)
[2018-12-23] MEDS ORDERED: INSULIN (NOVOLOG MIX 70/30) 100 UNITS/ML MDV SQ ONE (07:50)
[2018-12-23] MEDS: ARFORMOTEROL TARTRATE 15 MCG/2 ML VIAL NEB SCH ×2 (08:20→20:30)
[2018-12-23 08:38] LABS: HEMATOCRIT 41.5 % (35.4-49); HEMOGLOBIN 14.1 GM/dL (11.7-16.9); MCH 32.2 pg (25.7-33.7); MCHC 34.1 g/dl (32.0-35.9); MEAN CELL VOLUME 94.4 fl (80-96); MEAN PLT VOLUME 10.9 fl (7.5-11.1); PLATELET COUNT 131 K/MM3 (134-434); RDW 13.7 % (11.9-15.9); WHITE BLOOD COUNT 11.5 K/mm3 (4.0-10.0)
[2018-12-23] MEDS: ALBUTEROL SO4 2.5/IPRATROPIUM 0.5 INH SOL 3 ML VIAL.NEB. NEB SCH ×4 (08:56→20:30)
[2018-12-23 09:14] LABS: BLOOD UREA NITROGEN 20.9 mg/dL (7-18); CALCIUM 8.5 mg/dL (8.5-10.1); CREATININE 0.7 mg/dL (0.55-1.3); MAGNESIUM 2.5 mg/dL (1.8-2.4); PHOSPHOROUS 3.6 mg/dL (2.5-4.9); POTASSIUM 4.1 mmol/L (3.5-5.1)
[2018-12-23] MEDS: ENOXAPARIN NA (PORCINE) 40 MG/0.4 ML DISP.SYRIN SQ SCH (10:51)
[2018-12-23] MEDS: AZITHROMYCIN IVPB 500 MG/250 ML BAG IVPB SCH (10:52)
--- NOTE | 2018-12-23 12:25 | PN ---
Progress Note, Physician History of Present Illness: PULMONARY ALERT,FEELING BETTER,LESS COUGH,LESS DYSPNEIC,REMAINS HYPOXIC ON RA - Current Medication List Current Medications: Active Medications Albuterol Sulfate (Ventolin 0.083% Nebulizer Soln -) 1 amp NEB Q4H PRN PRN Reason: SHORT OF BREATH/WHEEZING Albuterol/Ipratropium (Duoneb -) 1 amp NEB RQID [facility] Last Admin: 12/23/18 08:56 Dose: Not Given Arformoterol Tartrate (Brovana (Restricted To Pulmonology/Resp) -) 1 amp NEB RBID [facility] Last Admin: 12/23/18 08:20 Dose: 1 amp Enoxaparin Sodium (Lovenox -) 40 mg SQ DAILY [facility] Last Admin: 12/23/18 10:51 Dose: 40 mg Azithromycin (Zithromax 500mg Ivpb (Pre-Docked)) 500 mg in 250 mls @ 250 mls/ hr IVPB DAILY [facility] Stop: 12/26/18 09:59 Last Admin: 12/23/18 10:52 Dose: 250 mls/hr Ibuprofen (Motrin -) 600 mg PO Q6H PRN PRN Reason: PAIN LEVEL 6-10 Methylprednisolone Sodium Succinate (Solu-Medrol -) 60 mg IVPUSH Q6H-IV BJORN Last Admin: 12/23/18 10:51 Dose: 60 mg Montelukast Sodium (Singulair -) 10 mg PO HS [facility] Last Admin: 12/22/18 22:08 Dose: 10 mg - Objective Vital Signs: Vital Signs Temperature 98 F 12/23/18 09:14 Pulse Rate 79 12/23/18 09:14 Respiratory Rate 20 12/23/18 09:14 Blood Pressure 124/55 L 12/23/18 09:14 O2 Sat by Pulse Oximetry (%) 94 L 12/23/18 09:00 Constitutional: Yes: Well Nourished, Calm Eyes: Yes: WNL HENT: Yes: WNL Neck: Yes: WNL Cardiovascular: Yes: Regular Rate and Rhythm, S1, S2 Respiratory: Yes: Wheezes (SCATTERED WHEEZES) Gastrointestinal: Yes: Normal Bowel Sounds, Soft Extremities: Yes: WNL Edema: No Labs: CBC, BMP 12/23/18 06:55 12/23/18 06:55 INR, PTT INR 1.06 (0.83-1.09) 12/20/18 11:23 Problem List - Problems (1) Hypoxemia Code(s): R09.02 - HYPOXEMIA (2) Acute hypoxemic respiratory failure Code(s): J96.01 - ACUTE RESPIRATORY FAILURE WITH HYPOXIA Assessment/Plan Problem List - Problems (1) COPD with acute exacerbation Code(s): J44.1 - CHRONIC OBSTRUCTIVE PULMONARY DISEASE W (ACUTE) EXACERBATION Assessment/Plan Acute COPD Exacerbation Hypoxia - continue medrol 60mg q6h - Brovana - inhaled bronchodilators standing and PRN - singulair - azithromycin - O2 to keep SpO2 >90% - DVT prophylaxis - outpatient pfts - low dose chest ct for lung cancer screening DR WINSLOW
--- NOTE | 2018-12-23 14:03 | PN ---
Teaching Attending Note Name of Resident: Chris Pierson ATTENDING PHYSICIAN STATEMENT I saw and evaluated the patient. I reviewed the resident's note and discussed the case with the resident. I agree with the resident's findings and plan as documented. SUBJECTIVE: Improving SOB/productive cough. Myalgia resolved. No fevers/ chills. No CP/palpitations OBJECTIVE: Afebrile, Hemodynamically Stable. SpO2 94% on 2L via NC Last Vital Signs Temp Pulse Resp BP Pulse Ox 98 F 79 20 124/55 L 94 L 12/23/18 09:14 12/23/18 09:14 12/23/18 09:14 12/23/18 09:14 12/23/18 09:00 HEART - S1, S2, RRR LUNGS - bilateral wheeze - improving. ABDOMEN - Soft, non-tender. Bowel Sounds normal. EXTREMITIES - no edema, no calf tenderness. Laboratory Results - last 24 hr 12/23/18 12/23/18 06:55 06:55 WBC 11.5 H RBC 4.40 Hgb 14.1 Hct 41.5 MCV 94.4 MCH 32.2 MCHC 34.1 RDW 13.7 Plt Count 131 L MPV 10.9 Sodium 144 Potassium 4.1 Chloride 108 H Carbon Dioxide 26 Anion Gap 11 BUN 20.9 H Creatinine 0.7 Est GFR (CKD-EPI)AfAm 112.38 Est GFR (CKD-EPI)NonAf 96.97 Random Glucose 119 H Calcium 8.5 Phosphorus 3.6 Magnesium 2.5 H Current Medications Generic Name Dose Route Start Last Admin Trade Name Freq PRN Reason Stop Dose Admin Albuterol Sulfate 1 amp 12/20/18 18:40 Ventolin 0.083% Nebulizer Soln - NEB Q4H PRN SHORT OF BREATH/WHEEZING Albuterol/Ipratropium 1 amp 12/21/18 08:00 12/23/18 08:56 Duoneb - NEB Not Given RQID BJORN Arformoterol Tartrate 1 amp 12/22/18 11:19 12/23/18 08:20 Brovana (Restricted To Pulmonology/Resp) - NEB 1 amp RBID BJORN Administration Enoxaparin Sodium 40 mg 12/21/18 10:00 12/23/18 10:51 Lovenox - SQ 40 mg DAILY BJORN Administration Azithromycin 500 mg in 250 mls @ 250 mls/hr 12/21/18 15:15 12/23/18 10:52 Zithromax 500mg Ivpb (Pre-Docked) IVPB 12/26/18 09:59 250 mls/hr DAILY BJORN Administration Ibuprofen 600 mg 12/21/18 13:00 Motrin - PO Q6H PRN PAIN LEVEL 6-10 Methylprednisolone Sodium Succinate 60 mg 12/22/18 11:20 12/23/18 10:51 Solu-Medrol - IVPUSH 60 mg Q6H-IV BJORN Administration Montelukast Sodium 10 mg 12/22/18 22:00 12/22/18 22:08 Singulair - PO 10 mg HS BJORN Administration Home Medications Medication Instructions Recorded Albuterol 2.5/Ipratropium 0.5 1 amp NEB QID PRN #1 amp 12/20/18 [Duoneb -] predniSONE [Deltasone -] 40 mg PO BID 12/21/18 ASSESSMENT AND PLAN: 68 year old male ex-smoker with history of COPD sent to ED from [facility] for poor results and symptoms of SOB, chest tightness, cough w/ clear-white sputum, found to be hypoxic and was admitted for COPD exacerbation. Acute Hypoxic Respiratory failure secondary to COPD Exacerbation, improving CXR - evidence of hyperinflation, no acute cardiopulmonary disease Pulmonary consulted - On Solumedrol 60mg q6hr, Azithromycin, Bronchodilator Nebs , Supplemental O2. LABA and Singular added by Pulmonary. Monitor Respiratory status. Pulm follow up as out-patient. DVT Px - Lovenox SQ
--- NOTE | 2018-12-23 16:37 | PN ---
Physical Exam: SUBJECTIVE: Patient seen and examined NAEON. Endorses improvement in SOB, chest tightness. Endorses gonzalez sputum with cough OBJECTIVE: Vital Signs Period Temp Pulse Resp BP Sys/Ochoa Pulse Ox Last 24 Hr 97.8 F-98.1 F 79-98 18-20 116-136/55-80 92-94 GENERAL: Awake, alert, and fully oriented, in no acute distress. HEAD: NC/AT EYES: sclera anicteric, conjunctiva clear. EARS, NOSE, THROAT: Ears normal, nares patent, oropharynx w/o erythema. Moist mucous membranes. NECK: Normal range of motion, supple without lymphadenopathy. LUNGS: mild expiratory wheezes lower b/l lungs, no crackles. No accessory muscle use. Speaking full sentences. NC 4L O2 HEART: tachy, reg rhythm, normal S1 and S2 without murmur, rub or gallop. ABDOMEN: Soft, nontender, not distended, no guarding, no rebound, no masses. MUSCULOSKELETAL: Normal range of motion at all joints. No bony deformities or tenderness. UPPER EXTREMITIES: 2+ pulses, warm, well-perfused. No cyanosis. No clubbing. No peripheral edema. LOWER EXTREMITIES: warm, well-perfused. No calf tenderness. No peripheral edema. NEUROLOGICAL: Normal speech. PSYCHIATRIC: Cooperative. Good eye contact. Appropriate mood and affect. SKIN: Warm, dry, normal turgor, no rashes or lesions noted, normal capillary refill. Laboratory Results - last 24 hr 12/23/18 12/23/18 06:55 06:55 WBC 11.5 H RBC 4.40 Hgb 14.1 Hct 41.5 MCV 94.4 MCH 32.2 MCHC 34.1 RDW 13.7 Plt Count 131 L MPV 10.9 Sodium 144 Potassium 4.1 Chloride 108 H Carbon Dioxide 26 Anion Gap 11 BUN 20.9 H Creatinine 0.7 Est GFR (CKD-EPI)AfAm 112.38 Est GFR (CKD-EPI)NonAf 96.97 Random Glucose 119 H Calcium 8.5 Phosphorus 3.6 Magnesium 2.5 H Active Medications Generic Name Dose Route Start Last Admin Trade Name Freq PRN Reason Stop Dose Admin Albuterol Sulfate 1 amp 12/20/18 18:40 Ventolin 0.083% Nebulizer Soln - NEB Q4H PRN SHORT OF BREATH/WHEEZING Albuterol/Ipratropium 1 amp 12/21/18 08:00 12/23/18 16:21 Duoneb - NEB Not Given RQID BJORN Arformoterol Tartrate 1 amp 12/22/18 11:19 12/23/18 08:20 Broelza (Restricted To Pulmonology/Resp) - NEB 1 amp RBID BJORN Administration Enoxaparin Sodium 40 mg 12/21/18 10:00 12/23/18 10:51 Lovenox - SQ 40 mg DAILY BJORN Administration Azithromycin 500 mg in 250 mls @ 250 mls/hr 12/21/18 15:15 12/23/18 10:52 Zithromax 500mg Ivpb (Pre-Docked) IVPB 12/26/18 09:59 250 mls/hr DAILY BJORN Administration Ibuprofen 600 mg 12/21/18 13:00 Motrin - PO Q6H PRN PAIN LEVEL 6-10 Methylprednisolone Sodium Succinate 60 mg 12/22/18 11:20 12/23/18 15:43 Solu-Medrol - IVPUSH 60 mg Q6H-IV BJORN Administration Montelukast Sodium 10 mg 12/22/18 22:00 12/22/18 22:08 Singulair - PO 10 mg HS BJORN Administration ASSESSMENT/PLAN: 68M w/ pmh of asthma, COPD sent to ED from [facility] for poor results and symptoms of SOB, chest tightness, cough w/ clear-white sputum. Admitted for asthma exacerbation after the patient demonstrated O2 requirement, desaturating to mid-high 80s on RA #asthma excerbation --symptomatically improved > EKG(12/20/18): 101 bpm, QTc 438 > CXR(12/20/18): no major abn, pending read > CXR(12/22/18): small effusions > BCX, UCX(12/20/18): NGTD - ED: s/p duonebx x4, solumedrol 124mg IVP - duonebs q6h, scheduled - duonebs q4h, PRN - solumedrol 40mg IVP, q4h - levofloxacin 750mg daily -- dc'd - azithromycin -- day 4, continue for 5d abx - supplemental O2, titrate >92% - Pulm Consulted: -- cw solumedrol 60mg q6h -- cw LABA(Brovana) -- cw singulair -- pt likely slow to improve -- outpt PFTs -- low-dose CT for cancer screening #lower back myalgia, RLE mylagia --resolved > CK 126 -monitor clinically #bilirubinemia --resolved > Tbil 1.2 -> 0.7 FEN - reg diet DVT - lovenox Visit type - Emergency Visit Emergency Visit: No - New Patient This patient is new to me today: No - Critical Care Critical Care patient: No ATTENDING PHYSICIAN STATEMENT I saw and evaluated the patient. I reviewed the resident's note and discussed the case with the resident. I agree with the resident's findings and plan as documented. SUBJECTIVE: OBJECTIVE: ASSESSMENT AND PLAN:
[2018-12-24] MEDS: methylPREDNISolone NA SUCC 40 MG/1 ML VIAL IVPUSH SCH ×5 (00:19→22:01)
[2018-12-24] MEDS: MONTELUKAST NA 10 MG TABLET PO SCH ×2 (00:23→22:01)
[2018-12-24] MEDS: ARFORMOTEROL TARTRATE 15 MCG/2 ML VIAL NEB SCH ×2 (08:27→20:43)
[2018-12-24] MEDS: ALBUTEROL SO4 2.5/IPRATROPIUM 0.5 INH SOL 3 ML VIAL.NEB. NEB SCH ×4 (08:27→20:43)
[2018-12-24] MEDS: AZITHROMYCIN IVPB 500 MG/250 ML BAG IVPB SCH (09:03)
[2018-12-24] MEDS: ENOXAPARIN NA (PORCINE) 40 MG/0.4 ML DISP.SYRIN SQ SCH (09:38)
[2018-12-24] MEDS ORDERED: PNEUMOC 13-VAL CONJ-DIP CRM/PF 0.5 ML DISP.SYRIN IM ONE (11:00)
--- NOTE | 2018-12-24 11:21 | PN ---
Progress Note (short form) - Note Progress Note: PULMONARY States breathing slowly improving. Chest feels looser. No fevers. Vital Signs Period Temp Pulse Resp BP Sys/Ochoa Pulse Ox Last 24 Hr 98.1 F-98.7 F 70-95 18-20 119-131/68-80 93 Gen: NAD in chair Heart: RRR Lung: distant breath sounds, better air entry Abd: soft, nontender Ext: no edema CBC, BMP 12/23/18 06:55 12/23/18 06:55 Active Medications Albuterol Sulfate (Ventolin 0.083% Nebulizer Soln -) 1 amp NEB Q4H PRN PRN Reason: SHORT OF BREATH/WHEEZING Albuterol/Ipratropium (Duoneb -) 1 amp NEB RQID [facility] Last Admin: 12/24/18 08:27 Dose: 1 amp Arformoterol Tartrate (Brovana (Restricted To Pulmonology/Resp) -) 1 amp NEB RBID [facility] Last Admin: 12/24/18 08:27 Dose: 1 amp Enoxaparin Sodium (Lovenox -) 40 mg SQ DAILY [facility] Last Admin: 12/24/18 09:38 Dose: 40 mg Azithromycin (Zithromax 500mg Ivpb (Pre-Docked)) 500 mg in 250 mls @ 250 mls/ hr IVPB DAILY [facility] Stop: 12/26/18 09:59 Last Admin: 12/24/18 09:03 Dose: 250 mls/hr Ibuprofen (Motrin -) 600 mg PO Q6H PRN PRN Reason: PAIN LEVEL 6-10 Methylprednisolone Sodium Succinate (Solu-Medrol -) 60 mg IVPUSH Q6H-IV [facility] Last Admin: 12/24/18 09:38 Dose: 60 mg Montelukast Sodium (Singulair -) 10 mg PO HS [facility] Last Admin: 12/24/18 00:23 Dose: 10 mg A/P Acute COPD Exacerbation Hypoxia from above Thrombocytopenia - continue medrol at current dose, can consider tapering in AM if continues to improve - continue Brovana - inhaled bronchodilators standing and PRN - singulair - azithromycin - O2 to keep SpO2 >90% - given severe reduction in FEV1, pt may be slow to improve - DVT prophylaxis Problem List - Problems (1) COPD with acute exacerbation Code(s): J44.1 - CHRONIC OBSTRUCTIVE PULMONARY DISEASE W (ACUTE) EXACERBATION
--- NOTE | 2018-12-24 11:30 | PN ---
Physical Exam: SUBJECTIVE: Patient seen and examined at bedside this morning. Patient saturating at the low 90s at rest on room air. Patient reports feeling better this morning, but still with some chest tightness. No acute events overnight. Patient denies fever, chills, headache, chest pain, palpitations, abdominal pain , diarrhea, urinary symptoms. OBJECTIVE: Vital Signs Temperature 97.6 F 12/24/18 14:00 Pulse Rate 100 H 12/24/18 14:00 Respiratory Rate 20 12/24/18 14:00 Blood Pressure 129/73 12/24/18 14:00 O2 Sat by Pulse Oximetry (%) 91 L 12/24/18 10:45 GENERAL: The patient is awake, alert, and fully oriented, in no acute distress. HEAD: Normal with no signs of trauma. EYES: PERRL, extraocular movements intact, sclera anicteric, conjunctiva clear. No ptosis. ENT: Ears normal, nares patent, oropharynx clear without exudates, moist mucous membranes. NECK: Trachea midline, full range of motion, supple. LUNGS: +scattered wheezes bilaterally HEART: Regular rate and rhythm, S1, S2. ABDOMEN: Soft, nontender, nondistended, normoactive bowel sounds. EXTREMITIES: 2+ pulses, warm, well-perfused, no edema. NEUROLOGICAL: Cranial nerves II through XII grossly intact. PSYCH: Normal mood, normal affect. SKIN: Warm, dry, normal turgor, no rashes or lesions noted Active Medications Generic Name Dose Route Start Last Admin Trade Name Freq PRN Reason Stop Dose Admin Albuterol Sulfate 1 amp 12/20/18 18:40 Ventolin 0.083% Nebulizer Soln - NEB Q4H PRN SHORT OF BREATH/WHEEZING Albuterol/Ipratropium 1 amp 12/21/18 08:00 12/24/18 08:27 Duoneb - NEB 1 amp RQID [facility] Administration Arformoterol Tartrate 1 amp 12/22/18 11:19 12/24/18 08:27 Brovana (Restricted To Pulmonology/Resp) - NEB 1 amp RBID [facility] Administration Enoxaparin Sodium 40 mg 12/21/18 10:00 12/24/18 09:38 Lovenox - SQ 40 mg DAILY [facility] Administration Azithromycin 500 mg in 250 mls @ 250 mls/hr 12/21/18 15:15 12/24/18 09:03 Zithromax 500mg Ivpb (Pre-Docked) IVPB 12/26/18 09:59 250 mls/hr DAILY [facility] Administration Ibuprofen 600 mg 12/21/18 13:00 Motrin - PO Q6H PRN PAIN LEVEL 6-10 Methylprednisolone Sodium Succinate 60 mg 12/22/18 11:20 12/24/18 09:38 Solu-Medrol - IVPUSH 60 mg Q6H-IV [facility] Administration Montelukast Sodium 10 mg 12/22/18 22:00 12/24/18 00:23 Singulair - PO 10 mg HS [facility] Administration ASSESSMENT/PLAN: Patient is a 68 year old male with past medical history of asthma and COPD, presented to the ED due to SOB, chest tightness and cough, and was admited for COPD exacerbation. #Acute hypoxic respiratory failure 2/2 COPD exacerbation, improving -Continue duonebs RQID and albuterol neb q4h PRN -continue Brovana RBID and Singulair 10mg daily -will taper down IV solu-medrol to 40mg q6h -O2 supplementation PRN, to keep SpO2 >90% -continue Azithromycin day 4, last dose tomorrow in am -outpatient PFTs and low dose chest CT for cancer screening -Pulmonology (Dr. Ramirez) consulted. #FEN -Not on any standing fluids -Electrolytes wnl, routine bmp monitoring -Regular diet #Prophylaxis -Lovenox 40mg sq daily #Disposition -full code -admit to med surg Visit type - Emergency Visit Emergency Visit: Yes ED Registration Date: 12/20/18 Care time: The patient presented to the Emergency Department on the above date and was hospitalized for further evaluation of their emergent condition. - New Patient This patient is new to me today: No - Critical Care Critical Care patient: No ATTENDING PHYSICIAN STATEMENT I saw and evaluated the patient. I reviewed the resident's note and discussed the case with the resident. I agree with the resident's findings and plan as documented. SUBJECTIVE: OBJECTIVE: ASSESSMENT AND PLAN:
--- NOTE | 2018-12-24 12:22 | PN ---
Teaching Attending Note Name of Resident: Agustina Alberto ATTENDING PHYSICIAN STATEMENT I saw and evaluated the patient. I reviewed the resident's note and discussed the case with the resident. I agree with the resident's findings and plan as documented. SUBJECTIVE: Improving SOB/productive cough. Myalgia resolved. No fevers/ chills. No CP/palpitations OBJECTIVE: Afebrile, Hemodynamically Stable. SpO2 93% on 2L via NC Last Vital Signs Temp Pulse Resp BP Pulse Ox 98.2 F 70 20 119/68 93 L 12/24/18 06:00 12/24/18 06:00 12/24/18 06:00 12/24/18 06:00 12/23/18 20:55 HEART - S1, S2, RRR LUNGS - bilateral wheeze - improving. ABDOMEN - Soft, non-tender. Bowel Sounds normal. EXTREMITIES - no edema, no calf tenderness. Current Medications Generic Name Dose Route Start Last Admin Trade Name Freq PRN Reason Stop Dose Admin Albuterol Sulfate 1 amp 12/20/18 18:40 Ventolin 0.083% Nebulizer Soln - NEB Q4H PRN SHORT OF BREATH/WHEEZING Albuterol/Ipratropium 1 amp 12/21/18 08:00 12/24/18 11:35 Duoneb - NEB 1 amp RQID [facility] Administration Arformoterol Tartrate 1 amp 12/22/18 11:19 12/24/18 08:27 Brovana (Restricted To Pulmonology/Resp) - NEB 1 amp RBID [facility] Administration Enoxaparin Sodium 40 mg 12/21/18 10:00 12/24/18 09:38 Lovenox - SQ 40 mg DAILY [facility] Administration Azithromycin 500 mg in 250 mls @ 250 mls/hr 12/21/18 15:15 12/24/18 09:03 Zithromax 500mg Ivpb (Pre-Docked) IVPB 12/26/18 09:59 250 mls/hr DAILY [facility] Administration Ibuprofen 600 mg 12/21/18 13:00 Motrin - PO Q6H PRN PAIN LEVEL 6-10 Methylprednisolone Sodium Succinate 60 mg 12/22/18 11:20 12/24/18 09:38 Solu-Medrol - IVPUSH 60 mg Q6H-IV [facility] Administration Montelukast Sodium 10 mg 12/22/18 22:00 12/24/18 00:23 Singulair - PO 10 mg HS [facility] Administration Home Medications Medication Instructions Recorded Albuterol 2.5/Ipratropium 0.5 1 amp NEB QID PRN #1 amp 12/20/18 [Duoneb -] predniSONE [Deltasone -] 40 mg PO BID 12/21/18 ASSESSMENT AND PLAN: 68 year old male ex-smoker with history of COPD sent to ED from [facility] for poor results and symptoms of SOB, chest tightness, cough w/ clear-white sputum, found to be hypoxic and was admitted for COPD exacerbation. Acute Hypoxic Respiratory failure secondary to COPD Exacerbation, improving CXR - evidence of hyperinflation, no acute cardiopulmonary disease Pulmonary consulted - On Solumedrol 60mg q6hr, Azithromycin, Bronchodilator Nebs , Supplemental O2. For tapering of solumedrol and transition to oral Prednisone if continues to clinically improve. LABA and Singular added by Pulmonary. Monitor Respiratory status. Pulm follow up as out-patient. DVT Px - Lovenox SQ
[2018-12-24] MEDS ORDERED: FLU VACCINE QUAD 60 MCG/0.5 ML (MDV 19-20) IM ONE (20:40)
[2018-12-25] MEDS: methylPREDNISolone NA SUCC 40 MG/1 ML VIAL IVPUSH SCH ×2 (02:47→10:42)
[2018-12-25 07:57] LABS: BLOOD UREA NITROGEN 20.2 mg/dL (7-18); CALCIUM 8.4 mg/dL (8.5-10.1); CREATININE 0.7 mg/dL (0.55-1.3); MAGNESIUM 2.7 mg/dL (1.8-2.4)
[2018-12-25 08:10] LABS: HEMATOCRIT 42.5 % (35.4-49); HEMOGLOBIN 14.6 GM/dL (11.7-16.9); MCHC 34.3 g/dl (32.0-35.9); MEAN CELL VOLUME 93.1 fl (80-96); MEAN PLT VOLUME 10.4 fl (7.5-11.1); PLATELET COUNT 132 K/MM3 (134-434); RBC 4.56 M/mm3 (4.00-5.60); RDW 13.5 % (11.9-15.9); WHITE BLOOD COUNT 11.3 K/mm3 (4.0-10.0)
[2018-12-25] MEDS: ALBUTEROL SO4 2.5/IPRATROPIUM 0.5 INH SOL 3 ML VIAL.NEB. NEB SCH ×4 (08:15→21:22)
[2018-12-25] MEDS: ARFORMOTEROL TARTRATE 15 MCG/2 ML VIAL NEB SCH ×2 (08:16→20:10)
[2018-12-25] MEDS: ENOXAPARIN NA (PORCINE) 40 MG/0.4 ML DISP.SYRIN SQ SCH (10:49)
[2018-12-25] MEDS: AZITHROMYCIN IVPB 500 MG/250 ML BAG IVPB SCH (10:49)
[2018-12-25] MEDS ORDERED: predniSONE 20 MG TABLET (UD) PO ONE (10:57)
--- NOTE | 2018-12-25 11:42 | PN ---
Progress Note (short form) - Note Progress Note: SUBJECTIVE: Improving SOB/cough. Myalgia resolved. No fevers/chills. No CP/ palpitations OBJECTIVE: Afebrile, Hemodynamically Stable. SpO2 93% on 2L via NC Last Vital Signs Temp Pulse Resp BP Pulse Ox 98.3 F 65 18 150/86 93 L 12/25/18 06:00 12/25/18 06:00 12/25/18 06:00 12/25/18 06:00 12/24/18 21:00 HEART - S1, S2, RRR LUNGS - bilateral wheeze much improved. ABDOMEN - Soft, non-tender. Bowel Sounds normal. EXTREMITIES - no edema, no calf tenderness. Laboratory Results - last 24 hr 12/25/18 12/25/18 06:40 06:40 WBC 11.3 H RBC 4.56 Hgb 14.6 Hct 42.5 MCV 93.1 MCH 32.0 MCHC 34.3 RDW 13.5 Plt Count 132 L MPV 10.4 Sodium 140 Potassium 4.0 Chloride 107 Carbon Dioxide 25 Anion Gap 8 BUN 20.2 H Creatinine 0.7 Est GFR (CKD-EPI)AfAm 112.38 Est GFR (CKD-EPI)NonAf 96.97 Random Glucose 130 H Calcium 8.4 L Magnesium 2.7 H Current Medications Generic Name Dose Route Start Last Admin Trade Name Freq PRN Reason Stop Dose Admin Albuterol Sulfate 1 amp 12/20/18 18:40 Ventolin 0.083% Nebulizer Soln - NEB Q4H PRN SHORT OF BREATH/WHEEZING Albuterol/Ipratropium 1 amp 12/21/18 08:00 12/25/18 08:15 Duoneb - NEB 1 amp RQID [facility] Administration Arformoterol Tartrate 1 amp 12/22/18 11:19 12/25/18 08:16 Brovana (Restricted To Pulmonology/Resp) - NEB 1 amp RBID [facility] Administration Enoxaparin Sodium 40 mg 12/21/18 10:00 12/25/18 10:49 Lovenox - SQ 40 mg DAILY [facility] Administration Azithromycin 500 mg in 250 mls @ 250 mls/hr 12/21/18 15:15 12/25/18 10:49 Zithromax 500mg Ivpb (Pre-Docked) IVPB 12/26/18 09:59 250 mls/hr DAILY [facility] Administration Ibuprofen 600 mg 12/21/18 13:00 Motrin - PO Q6H PRN PAIN LEVEL 6-10 Montelukast Sodium 10 mg 12/22/18 22:00 12/24/18 22:01 Singulair - PO 10 mg HS [facility] Administration Prednisone 40 mg 12/26/18 10:00 Deltasone - PO DAILY [facility] Home Medications Medication Instructions Recorded Albuterol 2.5/Ipratropium 0.5 1 amp NEB QID PRN #1 amp 12/20/18 [Duoneb -] predniSONE [Deltasone -] 40 mg PO BID 12/21/18 ASSESSMENT AND PLAN: 68 year old male ex-smoker with history of COPD sent to ED from [facility] for poor results and symptoms of SOB, chest tightness, cough w/ clear-white sputum, found to be hypoxic and was admitted for COPD exacerbation. Acute Hypoxic Respiratory failure secondary to COPD Exacerbation, improving CXR - evidence of hyperinflation, no acute cardiopulmonary disease Pulmonary following. Solumedrol transitioned to oral Prednisone. Continue Azithromycin, Bronchodilator Nebs. Repeat Pre-Post SpO2 - Supplemental O2 as required. LABA and Singular added by Pulmonary. Monitor Respiratory status. Pulm follow up as out-patient. DVT Px - Lovenox SQ Visit type - Emergency Visit Emergency Visit: Yes ED Registration Date: 12/20/18 Care time: The patient presented to the Emergency Department on the above date and was hospitalized for further evaluation of their emergent condition. - New Patient This patient is new to me today: No - Critical Care Critical Care patient: No - Discharge Referral Referred to [facility] Med P.C[facility] No
[2018-12-25] MEDS ORDERED: MAG HYDROX/AL HYDROX/SIMETH 30 ML UNIT-DOSE CUP PO PRN (11:49)
--- NOTE | 2018-12-25 11:49 | PN ---
Progress Note (short form) - Note Progress Note: PULMONARY States continues to slowly improve. Chest feels looser. No fevers. c/o abdominal discomfort. Vital Signs Period Temp Pulse Resp BP Sys/Ochoa Pulse Ox Last 24 Hr 97.6 F-98.3 F 65-100 18-20 127-150/70-86 93 Gen: NAD in chair Heart: RRR Lung: distant breath sounds, better air entry Abd: soft, nontender Ext: no edema CBC, BMP 12/25/18 06:40 12/25/18 06:40 Active Medications Albuterol Sulfate (Ventolin 0.083% Nebulizer Soln -) 1 amp NEB Q4H PRN PRN Reason: SHORT OF BREATH/WHEEZING Albuterol/Ipratropium (Duoneb -) 1 amp NEB RQID [facility] Last Admin: 12/25/18 08:15 Dose: 1 amp Arformoterol Tartrate (Brovana (Restricted To Pulmonology/Resp) -) 1 amp NEB RBID [facility] Last Admin: 12/25/18 08:16 Dose: 1 amp Enoxaparin Sodium (Lovenox -) 40 mg SQ DAILY [facility] Last Admin: 12/25/18 10:49 Dose: 40 mg Azithromycin (Zithromax 500mg Ivpb (Pre-Docked)) 500 mg in 250 mls @ 250 mls/ hr IVPB DAILY [facility] Stop: 12/26/18 09:59 Last Admin: 12/25/18 10:49 Dose: 250 mls/hr Ibuprofen (Motrin -) 600 mg PO Q6H PRN PRN Reason: PAIN LEVEL 6-10 Montelukast Sodium (Singulair -) 10 mg PO HS [facility] Last Admin: 12/24/18 22:01 Dose: 10 mg Prednisone (Deltasone -) 40 mg PO DAILY [facility] A/P Acute COPD Exacerbation Hypoxia from above Thrombocytopenia - agree with prednisone - continue Brovana - inhaled bronchodilators standing and PRN - singulair - azithromycin - O2 to keep SpO2 >90% - DVT prophylaxis Problem List - Problems (1) COPD with acute exacerbation Code(s): J44.1 - CHRONIC OBSTRUCTIVE PULMONARY DISEASE W (ACUTE) EXACERBATION
[2018-12-25] MEDS: MONTELUKAST NA 10 MG TABLET PO SCH (21:34)
[2018-12-26 07:40] VITALS: PULSE 95
[2018-12-26] MEDS: ALBUTEROL SO4 2.5/IPRATROPIUM 0.5 INH SOL 3 ML VIAL.NEB. NEB SCH ×2 (08:00→11:57)
[2018-12-26] MEDS: ARFORMOTEROL TARTRATE 15 MCG/2 ML VIAL NEB SCH (08:00)
[2018-12-26] MEDS: ENOXAPARIN NA (PORCINE) 40 MG/0.4 ML DISP.SYRIN SQ SCH (09:43)
[2018-12-26] MEDS ORDERED: predniSONE 20 MG TABLET (UD) PO SCH (10:00)
[2018-12-26 10:44] VITALS: BP 148/88; TEMP 98
--- NOTE | 2018-12-26 11:15 | PN ---
Progress Note (short form) - Note Progress Note: OOB to chair in nasal O2. Reports feeling overall better. No acute events overnight. Intake & Output 12/23/18 12/24/18 12/25/18 12/26/18 23:59 23:59 23:59 23:59 Intake Total 1270 1400 2590 Balance 1270 1400 2590 Last Vital Signs Temp Pulse Resp BP Pulse Ox 98 F 95 H 20 148/88 93 L 12/26/18 10:00 12/26/18 10:00 12/26/18 10:00 12/26/18 10:00 12/26/18 08:49 Active Medications Al Hydroxide/Mg Hydroxide (Mylanta Oral Suspension -) 30 ml PO Q6H PRN PRN Reason: DYSPEPSIA Last Admin: 12/25/18 12:56 Dose: 30 ml Albuterol Sulfate (Ventolin 0.083% Nebulizer Soln -) 1 amp NEB Q4H PRN PRN Reason: SHORT OF BREATH/WHEEZING Albuterol/Ipratropium (Duoneb -) 1 amp NEB RQID [facility] Last Admin: 12/26/18 08:00 Dose: 1 amp Arformoterol Tartrate (Brovana (Restricted To Pulmonology/Resp) -) 1 amp NEB RBID [facility] Last Admin: 12/26/18 08:00 Dose: 1 amp Enoxaparin Sodium (Lovenox -) 40 mg SQ DAILY [facility] Last Admin: 12/26/18 09:43 Dose: 40 mg Ibuprofen (Motrin -) 600 mg PO Q6H PRN PRN Reason: PAIN LEVEL 6-10 Montelukast Sodium (Singulair -) 10 mg PO HS [facility] Last Admin: 12/25/18 21:34 Dose: 10 mg Prednisone (Deltasone -) 40 mg PO DAILY [facility] Last Admin: 12/26/18 09:43 Dose: 40 mg Gen: NAD in chair Heart: RRR Lung: distant breath sounds, better air entry Abd: soft, nontender Ext: no edema Problem List - Problems (1) COPD with acute exacerbation Code(s): J44.1 - CHRONIC OBSTRUCTIVE PULMONARY DISEASE W (ACUTE) EXACERBATION A/P Acute COPD Exacerbation Hypoxia from above Thrombocytopenia - Prednisone - Brovana - inhaled bronchodilators standing and PRN - singulair - DVT prophylaxis - No smoking - Check Pre and Post ambulation saturation - On DC: LAMA / LABA / ICS Dr Pena
[2018-12-26] MEDS ORDERED: PANTOPRAZOLE 40 MG TABLET (FP) PO SCH (11:45)
--- NOTE | 2018-12-26 12:20 | PN ---
Teaching Attending Note Name of Resident: Chris Pierson ATTENDING PHYSICIAN STATEMENT I saw and evaluated the patient. I reviewed the resident's note and discussed the case with the resident. I agree with the resident's findings and plan as documented. SUBJECTIVE: Improving SOB/cough. Myalgia resolved. No fevers/chills. No CP/ palpitations OBJECTIVE: Afebrile, Hemodynamically Stable. SpO2 88% on RA Last Vital Signs Temp Pulse Resp BP Pulse Ox 98 F 95 H 20 148/88 93 L 12/26/18 10:00 12/26/18 10:00 12/26/18 10:00 12/26/18 10:00 12/26/18 08:49 HEART - S1, S2, RRR LUNGS - bilateral wheeze much improved. Good air entry bilaterally. ABDOMEN - Soft, non-tender. Bowel Sounds normal. EXTREMITIES - no edema, no calf tenderness. Current Medications Generic Name Dose Route Start Last Admin Trade Name Freq PRN Reason Stop Dose Admin Al Hydroxide/Mg Hydroxide 30 ml 12/25/18 11:49 12/25/18 12:56 Mylanta Oral Suspension - PO 30 ml Q6H PRN Administration DYSPEPSIA Albuterol Sulfate 1 amp 12/20/18 18:40 Ventolin 0.083% Nebulizer Soln - NEB Q4H PRN SHORT OF BREATH/WHEEZING Albuterol/Ipratropium 1 amp 12/21/18 08:00 12/26/18 11:57 Duoneb - NEB 1 amp RQID [facility] Administration Arformoterol Tartrate 1 amp 12/22/18 11:19 12/26/18 08:00 Brovana (Restricted To Pulmonology/Resp) - NEB 1 amp RBID [facility] Administration Enoxaparin Sodium 40 mg 12/21/18 10:00 12/26/18 09:43 Lovenox - SQ 40 mg DAILY [facility] Administration Ibuprofen 600 mg 12/21/18 13:00 Motrin - PO Q6H PRN PAIN LEVEL 6-10 Montelukast Sodium 10 mg 12/22/18 22:00 12/25/18 21:34 Singulair - PO 10 mg HS [facility] Administration Pantoprazole Sodium 40 mg 12/26/18 11:45 Protonix - PO DAILY [facility] Prednisone 40 mg 12/26/18 10:00 12/26/18 09:43 Deltasone - PO 40 mg DAILY [facility] Administration Home Medications Medication Instructions Recorded Albuterol 2.5/Ipratropium 0.5 1 amp NEB QID PRN #1 amp 12/20/18 [Duoneb -] predniSONE [Deltasone -] 40 mg PO BID 12/21/18 ASSESSMENT AND PLAN: 68 year old male ex-smoker with history of COPD sent to ED from [facility] for poor results and symptoms of SOB, chest tightness, cough w/ clear-white sputum, found to be hypoxic and was admitted for COPD exacerbation. Acute Hypoxic Respiratory failure secondary to COPD Exacerbation, improved, still hypoxic on room air. CXR - evidence of hyperinflation, no acute cardiopulmonary disease Solumedrol transitioned to oral Prednisone. Completed 5 days Azithromycin, Bronchodilator Nebs. Repeat Pre-Post SpO2 - Supplemental O2 as required. LABA and Singular added by Pulmonary. Continue slow Prednisone taper as out-patient with PPI cover. Pulm follow up as out-patient. Home O2 arranged on discharge Medically optimized for discharge.
--- NOTE | 2018-12-26 14:33 | DS ---
Physical Exam: SUBJECTIVE: Patient seen and examined OBJECTIVE: Vital Signs Period Temp Pulse Resp BP Sys/Ochoa Pulse Ox Last 24 Hr 97.7 F-98.4 F 80-95 20-95 116-148/64-88 91-93 PHYSICAL EXAM GENERAL: Awake, alert, and fully oriented, in no acute distress. HEAD: NC/AT EYES: sclera anicteric, conjunctiva clear. EARS, NOSE, THROAT: Ears normal, nares patent, oropharynx w/o erythema. Moist mucous membranes. NECK: Normal range of motion, supple without lymphadenopathy. LUNGS: b/l lungs w/o wheezes, crackles. No accessory muscle use. Speaking full sentences. NC 3L O2 HEART: tachy, reg rhythm, normal S1 and S2 without murmur, rub or gallop. ABDOMEN: Soft, nontender, not distended, no guarding, no rebound MUSCULOSKELETAL: Normal range of motion at all joints. No bony deformities or tenderness. UPPER EXTREMITIES: 2+ pulses, warm, well-perfused. No cyanosis. No clubbing. No peripheral edema. LOWER EXTREMITIES: warm, well-perfused. No calf tenderness. No peripheral edema. NEUROLOGICAL: Normal speech. PSYCHIATRIC: Cooperative. Good eye contact. Appropriate mood and affect. SKIN: Warm, dry, normal turgor, no rashes or lesions noted, normal capillary refill. LABS HOSPITAL COURSE: 68M w/ pmh of asthma, COPD sent to ED from [facility] for poor results and symptoms of SOB, chest tightness, cough w/ clear-white sputum. Admitted for asthma exacerbation after the patient demonstrated O2 requirement, desaturating to mid-high 80s on RA. Received solumedrol IV, given scheduled dubonebs. Had one day of levofloxacin at admission. Given azithromycin for 5d. CXR had flattened diaphgrams, suggestive of COPD. Repeat CXR showing mild b/l pleural effusions. Pulmonary consulted for little improvement after one day of IV steroids. Pulm increased solumedrol, started LABA(Brovana), singulair. Eventually transitioned to Prednisone. Patient still requiring O2 supplementation. Desaturating to 88% while ambulating w/o O2. Patient requiring Mobile Home O2 arrangement prior to discharge. Date of Admission:12/20/18 Date of Discharge: 12/26/18 Minutes to complete discharge: 20 Discharge Summary Problems reviewed: Yes Reason For Visit: COPD Current Active Problems Acute hypoxemic respiratory failure (Acute) COPD with acute exacerbation (Acute) Hypoxemia (Acute) Condition: Improved - Instructions Diet, Activity, Other Instructions: Your visit You were admitted to the hospital because you had shortness of breath. This was likely because of your COPD. You were given breathing treatments and steroids which improved your symptoms. You will continue to take this medications at home , please take them as prescribed below. You will also be sent home on oxygen. Please use this as needed. It is also recommended that you should have a chest CAT scan as outpatient for routine lung cancer screening. Medications Please take the following medications as prescribed: 1. Arformoterol tartrate (Brovana) 1 neb twice a day. 2. Montelukast (Singulair) 10 mg daily at bedtime. 3. Albuterol inhaler 1 puff every 4 hours as needed for shortness of breath. 4. Duonebs 1 amp every 6 hours as needed for shortness of breath 5. Pantoprazole 40mg daily for 2 weeks. 6. Please take the Prednisone taper as prescribed below: - Take 40mg Prednisone once a day for 2 more days starting tomorrow (12/27-12/28 ), then - Take 30mg Prednisone once a day for 3 days (12/29-12/31), then - Take 20mg Prednisone once a day for 3 days (01/01-01/03), then - Take 10mg Prednisone once a day for 3 days (01/04-01/06), then - Take 5mg Prednisone once a day for 3 days (01/07-01/09). Follow up Please follow up with your primary care provider (Dr. Pickard) in 1 week. Please follow up with pulmonology (Dr. Santana) within 1 week. You need to do pulmonary function testing and low dose chest CT scan for cancer screening. Additional info Please call 911 or go to the ED if with any worsening fever, chills, headache, chest pain, shortness of breath, abdominal pain, diarrhea, or any new concerns noted. Referrals: Donald Santana MD [Staff Physician] - Dariela Pickard [Primary Care Provider] - Disposition: HOME - Home Medications Comprehensive Discharge Medication List: Ambulatory Orders Albuterol 2.5/Ipratropium 0.5 [Duoneb -] 1 amp NEB RQID #60 amp 12/26/18 Albuterol Sulfate Inhaler - [Ventolin Hfa Inhaler -] 1 - 2 inh PO Q4H PRN #1 inhaler 12/26/18 Arformoterol Tartrate [[facility]ana -] 1 amp NEB RBID #60 amp 12/26/18 Montelukast Na [Singulair -] 10 mg PO HS #30 tablet 12/26/18 Nebulizer Accessories [A.i.r.s. Nebulizer] 1 each ASDIR #1 kit 12/26/18 Nebulizer [Aeroeclipse II] 1 each ASDIR #1 each 12/26/18 Pantoprazole Sodium [Protonix -] 40 mg PO DAILY #14 tablet.ec 12/26/18 This patient is new to me today: No Emergency Visit: No Critical Care patient: No - Discharge Referral Referred to [facility] Med P.C.: No ATTENDING PHYSICIAN STATEMENT I saw and evaluated the patient. I reviewed the resident's note and discussed the case with the resident. I agree with the resident's findings and plan as documented. SUBJECTIVE: OBJECTIVE: ASSESSMENT AND PLAN:
== END 2018-12-26 16:24 | disposition home or self-care (01) | DRG 140 ==
LOC: JER 11:53 → JERBED 17:01 → J5S 20:30
DX: J44.1 Chronic obstructive pulmonary disease with (acute) exacerbation (principal); J45.901 Unspecified asthma with (acute) exacerbation; J44.9 Chronic obstructive pulmonary disease, unspecified; J90 Pleural effusion, not elsewhere classified; D69.6 Thrombocytopenia, unspecified; E80.7 Disorder of bilirubin metabolism, unspecified; J96.01 Acute respiratory failure with hypoxia; M79.18 Myalgia, other site
CPT/HCPCS: 36415; 71046-TC-FY; 80048; 80053; 81003; 82550; 82962; 83605; 83735; 83880; 84100; 84484; 85025; 85027; 85610; 87040; 87086; 90670; 93005; 93010; 94010; 94640; 94761; 99284-25; J7030; Q2036